=== PATIENT | female | born 1960 | race Caucasian/White ===

== ENCOUNTER → 2016-08-14 | Outpatient (CLI) | payer BC, MEDICARE ==
[~2016-08-14] MED LIST: 00186-0372-20 IH; ABILIFY 10MG TA10 MG PO; ABILIFY 15MG TA15 MG PO; ABILIFY2 MG PO; ADIPEX; AMITIZA24 MCG PO; AMOXICILLIN 8751 TAB PO; AMRIX15 MG PO; ATARAX 25MG25 MG/TAB PO; ATENOLOL PO; ATENOLOL50 MG PO; BUMEX 1MG TA1 MG/TA1 PO; BUMEX PO; BUMEX1 MG PO; BUPROPION75 MG PO; CAFFEINE; CELEXA40 MG PO; CHANTIX1 MG PO; CLEOCIN HCL300 MG PO; COMBIVENT INH14.7 GM IH; CYCLOBENZAPRINE5 M1 PO; CYMBALTA 60MG60 MG PO; DEMADEX 20MG20 MG PO; DIAZEPAM5 MG PO; DOXYCYCLIN25 MG/5 M1 PO; DOXYCYCLINE 10100 MG PO; EFFER-K10 MEQ PO; ENJUVIA; ESTRACE 1MG1 MG/TAB PO; ESTRACE2 MG PO; ESTRODIOL; FLEXERIL 1010 MG/TAB PO; FLONASE NASAL S16 GM NS; FORTAMET1000 MG PO; GLUCOPHAGE1000 MG PO; K-DUR 2020 MEQ PO; KLOR-CON 1010 MEQ PO; LAMICTAL; LAMICTAL 100MG100 MG PO; LAMICTAL CD25 MG PO; LASIX 20MG TABL20 MG PO; LASIX 40MG TABL40 MG PO; LEVAQUIN 250MG250 MG PO; LEVAQUIN 5500 MG/TA1 PO; LEVAQUIN 750MG750 M1 PO; LEVOTHROID0.137 MG PO; LEVOTHYROXINE PO; LEVOXYL0.112 MG PO; LINZESS290CAP PO; LIPITOR 10MG10 MG PO; LORTAB 10/500 51 TAB PO; LYRICA PO; LYRICA100 MG PO; LYRICA200 MG PO; METFORMIN1000 MG PO; METHOCARBAMOL; MIRAPEX 0.125MG PO; MIRAPEX0.125 MG PO; MIRAPEX0.5 MG PO; MS CONTIN 115 MG/TAB PO; MS CONTIN 660 MG/TAB PO; MS CONTIN60 MG PO; NEURONTIN100 MG/CAP PO; NORVASC 5MG5 MG/TAB PO; OXYCODONE HCL5 MG PO; OXYCODONE5 MG PO; PERCOCET 325 MG1 TA2 PO; PREDNISONE20 MG PO; PREMARIN0.625 MG PO; PREMARIN1.25 MG PO; PRISTIQ 50 MG T50 MG PO; PRISTIQ50 MG PO; PROAIR HFA0.09 MG/AC IH; PROTONIX 40MG T40 MG PO; PROTONIX20 MG PO; REQUIP 1MG T1 MG/TAB PO; REQUIP0.25 MG PO; ROBAXIN 50500 MG/TAB PO; ROBAXIN500 MG PO; ROPINAROLE; RT ADVAIR 128 DISKUS IH; RT ADVAIR HFA 2312 G IH; RT SPIRIVA18 MCG IH; SEROQUEL 2525 MG/TAB PO; SINGULAIR 110 MG/TAB PO; SYNTHROID0.1 MG/TAB PO; SYNTHROID0.112 MG/T PO; THEO-24 20200 MG/CAP PO; TIZANIDINE2 MG PO; TIZANIDINE4 MG PO; TOPROL XL 50MG50 MG PO; VALIUM 5MG T5 MG/TAB PO; WELLBUTRIN XL300 M1 PO; WELLBUTRIN XL300 MG PO; ZYRTEC 10MG10 MG PO
== END ==
LOC: COL.RAD 08:20
DX: S92.252A Displaced fracture of navicular [scaphoid] of left foot, initial encounter for closed fracture (principal)

== ENCOUNTER 2017-04-13 20:42 | Emergency (ER) | payer BC, MEDICARE ==
[2007-07-16 11:47] VITALS: BP 122/75
[~2017-04-13] VITALS: Ht 162.6 cm; Wt 76.4 kg
[2017-04-13 20:45] VITALS: TEMP 98.9
[2017-04-13 22:02] VITALS: BP 142/68; PULSE 72
== END 2017-04-13 22:14 | disposition home or self-care (01) ==
LOC: COL.ER 20:42
DX: S93.401A Sprain of unspecified ligament of right ankle, initial encounter (principal); I10 Essential (primary) hypertension; E11.9 Type 2 diabetes mellitus without complications; J44.9 Chronic obstructive pulmonary disease, unspecified; F17.210 Nicotine dependence, cigarettes, uncomplicated; Z79.84 Long term (current) use of oral hypoglycemic drugs; X50.0XXA Overexertion from strenuous movement or load, initial encounter

== ENCOUNTER → 2017-08-20 | Outpatient (CLI) | payer MEDICARE, MEDICAID | LOC: MC.RAD 10:51 | DX: Z12.31 Encounter for screening mammogram for malignant neoplasm of breast (principal); Z98.82 Breast implant status ==

== ENCOUNTER → 2017-10-02 | Outpatient (CLI) | payer MEDICARE, OTHER, MEDICAID | LOC: COL.RAD 08:29 | DX: G44.52 New daily persistent headache (NDPH) (principal) ==

== ENCOUNTER 2018-01-15 15:42 | Emergency (ER) | payer MEDICARE, OTHER, MEDICAID ==
[2007-07-16 11:47] VITALS: BP 122/75
[~2018-01-15] VITALS: Ht 162.6 cm; Wt 68.2 kg
[2018-01-15 15:49] VITALS: BP 123/56; TEMP 98.2
[2018-01-15 16:43] LABS: BASO % 0.4 % (0.0-2.0); EOS # 0.1 (0.0-0.7); EOS % 1.2 % (0-4.0); GRAN # 4.6 (1.4-6.5); GRAN % 62.5 % (42.2-75.2); HEMOGLOBIN 11.4 g/dl (12.5-16.0); LYMPH # 1.9 (1.2-3.4); LYMPH % 25.1 % (20.0-51.0); MEAN CELL VOLUME 84 fl (80.0-100.0); MEAN CORPUSCULAR HEMOGLOBIN 28 pg (27.0-31.0); MEAN CORPUSCULAR HGB CONC 33 g/dl (33.0-37.0); MEAN PLATELET VOLUME 10.5 fl (7.4-10.4); MONO # 0.8 (0.1-0.6); MONO % 10.4 % (1.7-9.3); PLATELET COUNT 240 K/mm3 (130-400); RED BLOOD COUNT 4.12 M/mm3 (4.10-5.30)
[2018-01-15 16:45] LABS: HEMATOCRIT 34.5 % (37.0-47.0)
[2018-01-15 16:55] LABS: ALBUMIN 3.8 gm/dL (3.5-5.0); BILIRUBIN,TOTAL 0.4 mg/dL (0.0-1.0); CALCIUM 8.8 mg/dL (8.4-10.2); CREATININE, serum 0.6 mg/dL (0.52-1.25); POTASSIUM 3.6 mmol/L (3.4-5.0); TOTAL PROTEIN 7.3 gm/dL (6.4-8.2)
[2018-01-15] MEDS ORDERED: DOXYCYCLINE 10100 MG PO (17:14)
[2018-01-15 17:20] LABS: C-REACTIVE PROTEIN 22.1 mg/dL (0.0-0.9)
[2018-01-15 19:25] VITALS: PULSE 83
== END 2018-01-15 19:25 | disposition home or self-care (01) ==
LOC: COL.ER 15:42
PROVIDERS: Emergency Medicine
DX: L03.115 Cellulitis of right lower limb (principal); E11.9 Type 2 diabetes mellitus without complications; J44.1 Chronic obstructive pulmonary disease with (acute) exacerbation; F32.9 Major depressive disorder, single episode, unspecified; F17.210 Nicotine dependence, cigarettes, uncomplicated; Z79.84 Long term (current) use of oral hypoglycemic drugs
CPT/HCPCS: J7050

== ENCOUNTER → 2018-09-20 | Outpatient (CLI) | payer MEDICARE | LOC: COL.RAD 09-08 08:30 | DX: Z01.812 Encounter for preprocedural laboratory examination (principal); H05.89 Other disorders of orbit | CPT/HCPCS: Q9967 ==

== ENCOUNTER → 2018-09-29 | Outpatient (CLI) | payer MEDICARE, OTHER, MEDICAID | LOC: MC.RAD 09-01 07:30 | DX: Z12.31 Encounter for screening mammogram for malignant neoplasm of breast (principal) ==